=== PATIENT | female | born 1980 | race Two or more races ===

== ENCOUNTER 2024-04-09 23:00 | Emergency (ER) | payer OTHER ==
[~2024-04-09] VITALS: Ht 167.6 cm; Wt 81.6 kg
[2024-04-10] MEDS ORDERED: KETOROLAC TROMETHAMINE 60 MG VIAL IM STA (01:15)
[2024-04-10] MEDS ORDERED: HYDROCODONE/CHLORPHEN P-STIREX 5 ML ML PO STA (01:15)
[2024-04-10 01:42] LABS: HEMATOCRIT 30.8 % (36.0-45.00); HEMOGLOBIN 10.1 g/dL (12.0-15.00); MEAN CORPUSCULAR HEMOGLOBIN 22.6 pg (27.00-32.0); PLATELET COUNT 210 K/uL (150-450); RED BLOOD COUNT 4.46 M/uL (4.00-6.00); RED CELL DISTRIBUTION WIDTH 19.7 % (11.5-14.5)
[2024-04-10 01:43] LABS: MEAN CORPUSCULAR HGB CONC 32.7 g/dl (32.0-36.0)
[2024-04-10] MEDS ORDERED: BENZONATATE 100 MG CAPSULE PO STA (02:24)
== END 2024-04-10 03:13 | disposition home or self-care (01) ==
LOC: ER 23:01
DX: R53.81 Other malaise (principal); J06.9 Acute upper respiratory infection, unspecified; R05.9 Cough, unspecified; Z20.822 Contact with and (suspected) exposure to COVID-19; Z88.0 Allergy status to penicillin